=== PATIENT | male | born 1935 ===

== ENCOUNTER 2020-07-31 07:45 | Outpatient (CLI) | payer MEDICARE, SELFPAY ==
--- NOTE | 2020-09-13 16:38 | WPDHOMESLEEP ---
Sleep Study - Home Unattended Date of Study: 07/31/20 Ordering Provider: Maxwell Potts MD Interpreting Physician: Kim Ahumada MD Home Sleep Study Type: Apnea Link Air Height: 1.7 m Weight: 99.79 kg Body Mass Index: 34.4 Neck Circumference (inches): 17 [place]: 7 Reason for Sleep Study History of obstructive sleep apnea, follow up study was negative and he stopped CPAP; now has mild pulmonary hypertension and restless sleep Sleep History Rai Campbell is an 85 year old man with a history of sleep apnea. He had a negative study on 2017, and was taken off CPAP. His sleep is disrupted with frequent episodes of waking, 4 or 5 times at night, usually to urinate. He occasionally snores, rarely loudly enough that others complain about it. He does not awaken at night with heartburn, belching or coughing. He does not awaken from sleep feeling short of breath. He occasionally has trouble sleeping with a cold. He does not wake up gasping for breath at night. He occasionally has breathing problems at night observed by others since he had COVID. He does not sweat excessively at night or notices heart pounding or beating irregularly at night. He frequently falls asleep during the day, occasionally while driving. He does not fall asleep while exerting physical effort. He does not have loss of muscle tone with strong emotion. He does not have daytime difficulties due to excessive sleepiness, he is retired. He does not feel paralyzed on waking or falling asleep nor does he have vivid dreamlike scenes upon awakening or falling asleep. He rarely is afraid to go to sleep. He does not have nightmares, does not remember his dreams and does not have racing thoughts. He rarely feels sad or depressed. He occasionally has anxiety. He does not have muscular tension. He does not notice part of his body jerking. He rarely kicks at night. He has leg cramping at night. He occasionally has crawling and aching feelings in his legs at night. He does not have morning jaw pain. He rarely grinds his teeth during sleep. He does not have pain that bothers him during the day and it is not awakened by pain at night. He occasionally wakes up feeling stiff in the morning, rarely with sore achy muscles. He does not wake up with pain in the neck or spine. He has daytime fatigue. He rarely wakes up feeling refreshed. He had COVID in November, and has had Shortness of breath with exertion which has not resolved. Pulmonary hypertension was noted on an echo -2- with RVSP 30-40 mmHg. He was diagnosed with adenocarcinoma of the lung in 2016, had a colonoscopy with a polyp that was consistent with metastatic non-small cell lung cancer [id number] , now on alectinib. His normal bedtime is 10:30 p.m. falling asleep within 30-60 minutes. He typically wakes 6 or 7 times at night to go to the bathroom to urinate. He stays awake for approximately 15 minutes. He wakes the morning at 8:00 a.m.. He takes a nap after having breakfast then chemotherapy. he sometimes takes other naps. A short nap of 10 or 15 minutes may be refreshing. He is usually drowsy in the morning for 1 hour or longer after waking. He feels better in the afternoon and evening compared to the morning. He has memory or concentration problems on occasion. Habits: He has never smoked tobacco. Coffee 2 cups per day. He takes medical marijuana which is prescribed. [facility] Past Medical History Medical History (Updated 09/13/20 @ 17:07 by Kim Ahumada MD) Anxiety and depression Arteriosclerosis of coronary artery Arthritis Ascending aortic aneurysm Basal cell carcinoma Right side, 1999 BPH associated with nocturia Bulging lumbar disc CAD (coronary artery disease) Glaucoma Hearing loss Hyperlipidemia Hypertension Neuropathy Non-small cell lung cancer Pulmonary hypertension Surgical History Surgical History (Updated 09/13/20 @ 16:52 by Kim Ahumada MD) History of hip replacement left
[2020-09-13 17:38] VITALS: BMI 34.4
== END 2020-07-31 07:46 | disposition home or self-care (01) ==
DX: G47.33 Obstructive sleep apnea (adult) (pediatric) (principal)
CPT/HCPCS: 95806